=== PATIENT | male | born 1960 | race Caucasian/White ===

== ENCOUNTER 2022-03-05 10:28 | Inpatient (IN) | payer OTHER ==
[~2022-03-05] VITALS: Ht 182.9 cm; Wt 108.5 kg
[2022-03-05 12:02] LABS: Basophils # (auto) 0.2 10 ^3/uL (0-0.2); Basophils % (auto) 1.8 % (0.0-2.0); Eosinophils # (auto) 0.1 10 ^3/uL (0-0.8); Eosinophils % (auto) 0.7 % (0.0-7.0); Hematocrit 42.5 % (41.0-53.0); Hemoglobin 14.3 g/dL (13.5-17.5); Lymphocytes # (auto) 1.3 10 ^3/uL (0.4-5.4); Mean Corpuscular Hemoglobin 27.1 pg (28.0-32.0); Mean Corpuscular Hgb Conc. 33.7 g/dL (32.0-36.0); Mean Corpuscular Volume 80.3 fL (80.0-100.0); Monocytes # (auto) 0.8 10 ^3/uL (0-1.3); Monocytes % (auto) 5.9 % (0.0-12.0); Neutrophils # (auto) 10.4 10 ^3/uL (1.6-8.6); Neutrophils % (auto) 81.6 % (37.0-80.0); Red Blood Cells 5.29 10^6/uL (4.5-5.90); Red Cell Distribution Width 13.3 % (11.8-14.3); White Blood Cell 12.8 10^3/uL (4.4-10.8)
[2022-03-05 12:28] LABS: Albumin 3.2 g/dL (3.4-5.0); Calcium 8.6 mg/dL (8.5-10.1); Potassium 3.9 mmol/L (3.5-5.1)
[2022-03-05 12:33] LABS: BUN/Creatinine Ratio 15.4; Bilirubin, Total 0.5 mg/dL (0.2-1.0); Total Protein 7.6 g/dL (6.4-8.2)
[2022-03-05] MEDS ORDERED: IOHEXOL 350 MG/ML 100ML IJ ONE (14:34)
[2022-03-05] MEDS ORDERED: cefTRIAXone 1GM/50ML D5W 50 ML IV ONE (20:45)
[2022-03-05] MEDS ORDERED: TEMAZEPAM 15 MG CAP PO PRN (23:00)
[2022-03-05] MEDS ORDERED: ACETAMINOPHEN 325 MG TAB PO PRN (23:00)
[2022-03-05] MEDS ORDERED: methylPREDNISolone SOD SUCC 125 MG/2 ML VL IV ONE (23:00)
[2022-03-05] MEDS ORDERED: ALBUTEROL SULF 2.5 MG/0.5ML(0.5%) NEB SOLN NEB PRN (23:00)
[2022-03-05] MEDS ORDERED: MORPHINE SULFATE INJ 2 MG/ml SYRG IV PRN (23:00)
[2022-03-05] MEDS ORDERED: NITROGLYCERIN 0.4 MG SL TAB SL PRN (23:00)
[2022-03-05] MEDS ORDERED: ONDANSETRON HCL 4 MG/2 ML VIAL IV PRN (23:00)
[2022-03-05 23:06] VITALS: BP 151/81
[2022-03-06 01:06] VITALS: BP_SYST 150; BP_DIAS 81; BP_DIAS 85
[2022-03-06 04:42] VITALS: BP 127/74
[2022-03-06 05:40] LABS: Basophils # (auto) 0 10 ^3/uL (0-0.2); Basophils % (auto) 0.1 % (0.0-2.0); Eosinophils # (auto) 0 10 ^3/uL (0-0.8); Eosinophils % (auto) 0.1 % (0.0-7.0); Hematocrit 41.9 % (41.0-53.0); Hemoglobin 14.3 g/dL (13.5-17.5); Lymphocytes # (auto) 0.8 10 ^3/uL (0.4-5.4); Lymphocytes % (auto) 7.6 % (10.0-50.0); Mean Corpuscular Hemoglobin 27.5 pg (28.0-32.0); Mean Corpuscular Hgb Conc. 34.2 g/dL (32.0-36.0); Mean Corpuscular Volume 80.4 fL (80.0-100.0); Monocytes # (auto) 0.2 10 ^3/uL (0-1.3); Monocytes % (auto) 2.2 % (0.0-12.0); Neutrophils # (auto) 9.4 10 ^3/uL (1.6-8.6); Red Blood Cells 5.21 10^6/uL (4.5-5.90); Red Cell Distribution Width 13.2 % (11.8-14.3); White Blood Cell 10.4 10^3/uL (4.4-10.8)
[2022-03-06 06:00] LABS: Calcium 8.9 mg/dL (8.5-10.1); Potassium 4.5 mmol/L (3.5-5.1)
[2022-03-06] MEDS: LEVOTHYROXINE SODIUM 50 MCG TAB PO SCH (06:05)
[2022-03-06] MEDS ORDERED: ATOR20TA50 PO (06:41)
[2022-03-06] MEDS ORDERED: LISI20TA28 PO (06:41)
[2022-03-06] MEDS ORDERED: LEVO50TA7 PO (06:41)
[2022-03-06 09:00] VITALS: BP 146/98
[2022-03-06] MEDS: cefTRIAXone 1GM/50ML D5W 50 ML IV SCH (09:45)
[2022-03-06] MEDS: methylPREDNISolone SOD SUCC 40 MG/ML VL IV SCH ×2 (09:45→21:18)
[2022-03-06] MEDS: PANTOPRAZOLE 40 MG TAB PO SCH (09:45)
[2022-03-06] MEDS: LISINOPRIL 20 MG TAB PO SCH (09:46)
[2022-03-06] MEDS ORDERED: ENOXAPARIN SOD 40 MG/0.4 ML SYRINGE SC SCH (10:00)
[2022-03-06] MEDS: IPRATROPIUM BROM 0.5 MG/2.5ML INH SOL NEB SCH ×2 (11:26→18:50)
[2022-03-06] MEDS: ALBUTEROL SULF 2.5 MG/0.5ML(0.5%) NEB SOLN NEB SCH ×2 (11:26→18:50)
[2022-03-06 12:17] LABS: Urine WBC None Seen /hpf (0 - 3)
[2022-03-06 12:49] LABS: Urine Bacteria NONE SEEN /hpf (None Seen); Urine Blood Negative /uL (Negative); Urine Specific Gravity 1.008 (1.001-1.035)
[2022-03-06 13:02] VITALS: BP 144/81
[2022-03-06] MEDS: guaiFENesin-DM 100/10mg/5ml SYR PO PRN ×2 (14:39→21:18)
[2022-03-06 17:00] VITALS: BP 137/85
[2022-03-06 22:00] VITALS: BP 136/75
[2022-03-06] MEDS ORDERED: ATORVASTATIN 20 MG TAB PO SCH (22:00)
[2022-03-07] MEDS: IPRATROPIUM BROM 0.5 MG/2.5ML INH SOL NEB SCH ×2 (04:37→11:20)
[2022-03-07] MEDS: ALBUTEROL SULF 2.5 MG/0.5ML(0.5%) NEB SOLN NEB SCH ×2 (04:37→11:19)
[2022-03-07 05:00] VITALS: BP 143/83
[2022-03-07] MEDS: LEVOTHYROXINE SODIUM 50 MCG TAB PO SCH (06:01)
[2022-03-07] MEDS: guaiFENesin-DM 100/10mg/5ml SYR PO PRN (06:40)
[2022-03-07 09:00] VITALS: BP 147/84
[2022-03-07] MEDS: LISINOPRIL 20 MG TAB PO SCH (09:29)
[2022-03-07] MEDS: PANTOPRAZOLE 40 MG TAB PO SCH (09:29)
[2022-03-07] MEDS: methylPREDNISolone SOD SUCC 40 MG/ML VL IV SCH (09:29)
[2022-03-07] MEDS: cefTRIAXone 1GM/50ML D5W 50 ML IV SCH (09:29)
[2022-03-07 13:00] VITALS: BP 141/84
== END 2022-03-07 12:09 | disposition home or self-care (01) | DRG 194 ==
LOC: ER 10:28 → TELE 22:52 → TELE-CENTR 23:37
PROVIDERS: ADMIT Nurse Practitioner; ATTEND Internal Medicine
DX: J18.9 Pneumonia, unspecified organism (principal); I24.9 Acute ischemic heart disease, unspecified; I25.10 Atherosclerotic heart disease of native coronary artery without angina pectoris; E66.9 Obesity, unspecified; E78.5 Hyperlipidemia, unspecified; E03.9 Hypothyroidism, unspecified; I10 Essential (primary) hypertension; Z20.822 Contact with and (suspected) exposure to COVID-19; J45.909 Unspecified asthma, uncomplicated; Z68.32 Body mass index [BMI] 32.0-32.9, adult
CPT/HCPCS: 36415; 71045; 71275; 80048; 80053; 81001; 83880; 84443; 84484; 85025; 85379; 87081; 93005; 93306; 94640; 96365; 96375; G0378; J0696

== ENCOUNTER 2025-05-17 08:05 | Inpatient (IN) | payer OTHER ==
[~2025-05-17] VITALS: Ht 185.4 cm; Wt 102.5 kg
[~2025-05-17 08:05] MED LIST: ATOR20TA50 PO; LEVO50TA7 PO; LISI20TA56 PO
--- NOTE | 2025-05-17 08:15 | ECG ---
[facility] Test Date: 2025-05-17 Test Time: 08:12:04 Pat Name: FAIZAN MCKENZIE Department: Room: 0222 Gender: M Production Planner: CHRISTINA : 1960 Requested By: YONATHAN ARVIZU Order Number: [id number] Reading MD: Tommie Domínguez Measurements Intervals [place] Rate: 71 P: 63 IN: 172 QRS: 40 QRSD: 99 T: 76 QT: 429 QTc: 467 Interpretive Statements Sinus rhythm Abnormal R-wave progression, early transition Electronically Signed On 05-18-2025 18:46:49 PDT by Tommie Domínguez Please click the below link to view image of tracing.
--- NOTE | 2025-05-17 08:27 | ED.PDOC ---
History of Present Illness HPI Comments 65-year-old male came to the complaining of epigastric pain this morning. Epigastric pain radiating to the back. He states the is 10 10. Associated nausea unable vomit diarrhea. Patient has never had this kind of pain in the past. He does have a history of hypertension. He does take manjera injection for his prediabetes. Denies any past surgical history. Denies any other symptoms. Chief Complaint: Abdominal Pain Time Seen by MD: 08:16 Primary Care Provider: JHOANA Reviewed Notes: Nurses Notes, Medications, Allergies Allergies: Coded Allergies: NO KNOWN ALLERGIES (Unverified , 07/15/13) Home Meds Reported Medications Atorvastatin Calcium (ATORVASTATIN CALCIUM) 20 Mg Tab, 1 TAB PO DAILYPRN 03/06/22 Lisinopril (Lisinopril) 20 Mg Tab, 1 TAB PO DAILYPRN 03/06/22 Levothyroxine Sodium (Levothyroxine Sodium) 50 Mcg Tab, 1 TAB PO DAILYPRN 03/06/22 Information Source: Patient Mode of Arrival: Ambulatory Severity: Moderate Timing: Hours Past Medical History PAST MEDICAL HISTORY: HTN, Thyroid Surgical History: Denies all surgeries Family History Family History: No family hx of Cancer, No family hx of Heart jimmie Social History Smoker: Non-Smoker Alcohol: Denies ETOH Use Drugs: Denies Drug Use Lives In: Home Constitutional: denies: chills, diaphoresis, fatigue, fever, malaise, sweats, weakness, others EENTM: denies: blurred vision, double vision, ear bleeding, ear discharge, ear drainage, ear pain, ear ringing, eye pain, eye redness, hearing loss, mouth pain, mouth swelling, nasal discharge, nose bleeding, nose congestion, nose pain, photophobia, tearing, throat pain, throat swelling, voice changes, others Respiratory: denies: cough, hemoptysis, orthopnea, SOB at rest, shortness of breath, SOB with excertion, stridor, wheezing, others Cardiovascular: denies: chest pain, dizzy spells, diaphoresis, Dyspnea on exertion, edema, irregular heart beat, left arm pain, lightheadedness, palpitations, PND, syncope, others Gastrointestinal: reports: abdominal pain, diarrhea, nausea; denies: abdomen distended, blood streaked bowels, constipated, dysphagia, difficulty swallowing, hematemesis, melena, poor appetite, poor fluid intake, rectal bleeding, rectal pain, vomiting, others Genitourinary: denies: burning, dysuria, flank pain, frequency, hematuria, incontinence, penile discharge, penile sore, pain, testicle pain, testicle swelling, urgency, others Neurological: denies: dizziness, fainting, headache, left sided numbness, left sided weakness, numbness, paresthesia, pre-existing deficit, right sided numbness, right sided weakness, seizure, speech problems, tingling, tremors, weakness, others Musculoskeletal: denies: back pain, gout, joint pain, joint swelling, muscle pain, muscle stiffness, neck pain, others Integumetry: denies: bruises, change in color, change in hair/nails, dryness, laceration, lesions, lumps, rash, wounds, others Allergic/Immunocompromised: denies: Difficulty Healing, Frequent Infections, Hives, Itching, others Hematologic/Lymphatic: denies: anemia, blood clots, easy bleeding, easy bruising, swollen glands, others Endocrine: denies: excessive hunger, excessive sweating, excessive thirst, excessive urination, flushing, intolerance to cold, intolerance to heat, unexpl ained weight gain, unexplained weight loss, others Psychiatric: denies: anxiety, bipolar disorder, depression, hopeless, panic disorder, schizophrenia, sleepless, suicidal, others Physical Exam General Appearance: Moderate Distress HEENT: Normal ENT Inspection, Pharynx Normal, TMs Normal Neck: Full Range of Motion, Non-Tender, Normal, Normal Inspection Respiratory: Chest Non-Tender, Lungs Clear, No Accessory Muscle Use, No Respiratory Distress, Normal Breath Sounds Cardiovascular: No Edema, No JVD, No Murmur, No Gallop, Normal Peripheral Pulses, Regular Rate/Rhythm Breast Exam: Deferred Gastrointestinal: Soft Genitalia: Deferred Pelvic: Deferred Rectal: Deferred Extremities: No calf tenderness, Normal capillary refill, Normal inspection, Normal range of motion, Non-tender, No pedal edema Musculoskeletal : Apperance: Normal Neurologic: Alert, mill tender washing II-XII nml as Tested, No Motor Deficits, Normal Affect, Normal Mood, No Sensory Deficits Cerebellar Function: Normal Reflexes: Normal Skin: Dry, Normal Color, Warm Peripheral Pulses: 3+ Radial (R), 3+ Radial (L) Lymphatic: No Adenopathy Was a procedure done? Was a procedure done?: No EKG EKG : Pulse Rate (adult): 71 Cardiac Rhythm: NSR Differential Dx Considerations may include: Gastroenteritis Electrolyte imbalance X-Ray, Labs, Meds, VS Vital Signs Date Time Temp Pulse Resp B/P (MAP) Pulse Ox O2 Delivery O2 Flow Rate FiO2 05/17/25 10:44 77 18 146/97 05/17/25 10:09 97.5 77 17 146/97 (113) 92 97.5 05/17/25 09:00 80 16 148/97 05/17/25 08:27 71 05/17/25 08:12 71 05/17/25 08:06 97.7 80 18 151/78 98 97.7 Lab Test 05/17/25 10:38 05/17/25 08:50 Range/Units Troponin I High Sensitivity 5 3 L </=54 ng/L White Blood Count 17.0 H 4.4-10.8 10^3/uL Red Blood Count 6.05 H 4.5-5.90 10^6/uL Hemoglobin 16.5 13.5-17.5 g/dL Hematocrit 49.3 41.0-53.0 % Mean Corpuscular Volume 81.5 80.0-100.0 fL Mean Corpuscular Hemoglobin 27.2 L 28.0-32.0 pg Mean Corpuscular Hemoglobin Concent 33.4 32.0-36.0 g/dL Red Cell Distribution Width 13.1 11.8-14.3 % Platelet Count 380 140-450 10^3/uL Mean Platelet Volume 8.0 6.9-10.8 fL Neutrophils (%) (Auto) 84.4 H 37.0-80.0 % Lymphocytes (%) (Auto) 8.9 L 10.0-50.0 % Monocytes (%) (Auto) 6.0 0.0-12.0 % Eosinophils (%) (Auto) 0.3 0.0-7.0 % Basophils (%) (Auto) 0.4 0.0-2.0 % Neutrophils # (Auto) 14.3 H 1.6-8.6 10 ^3/uL Lymphocytes # (Auto) 1.5 0.4-5.4 10 ^3/uL Monocytes # (Auto) 1.0 0-1.3 10 ^3/uL Eosinophils # (Auto) 0.1 0-0.8 10 ^3/uL Basophils # (Auto) 0.1 0-0.2 10 ^3/uL Nucleated Red Blood Cells 0.0 % Sodium Level 142 136-145 mmol/L Potassium Level 4.7 3.5-5.1 mmol/L Chloride Level 108 H 98-107 mmol/L Carbon Dioxide Level 25 20-31 mmol/L Anion Gap 9 5-15 Blood Urea Nitrogen 17 9-23 mg/dL Creatinine 1.29 0.700-1.30 mg/dL Glomerular Filtration Rate Calc 61 >90 mL/min BUN/Creatinine Ratio 13.2 10.0-20.0 Serum Glucose 169 H 74-106 mg/dL Calcium Level 9.1 8.7-10.4 mg/dL Current Medications Medications (Trade) Dose Ordered Sig/Vicky Route Start Time Stop Time Status Last Admin Sodium Chloride 1,000 ml @ 1,000 mls/hr Q1H ONCE IV 05/17/25 08:30 05/17/25 09:29 DC 05/17/25 09:30 Ondansetron HCl (Zofran) 4 mg ONCE ONCE IV 05/17/25 08:30 05/17/25 08:31 DC 05/17/25 09:30 Morphine Sulfate 4 mg ONCE ONCE IV 05/17/25 08:30 05/17/25 08:31 DC 05/17/25 09:00 Hydromorphone HCl (Dilaudid Injection) 1 mg ONCE ONCE IV 05/17/25 10:15 05/17/25 10:17 DC 05/17/25 10:44 Ceftriaxone Sodium 50 ml @ 100 mls/hr ONCE ONCE IV 05/17/25 11:15 05/17/25 11:44 DC 05/17/25 11:35 Patient alert. Complaining of nausea unable to vomit diarrhea. Vitals stable. Answering questions. Blood pressure slightly elevated possibly from pain. Establish intravenous access Was given fluids, Was given morphine. Was given Zofran. Explained to the patient. Continue monitoring. [address] [address] Ph: [phone] DIAGNOSTIC IMAGING Diagnostic Imaging Report : [id number] Signed PATIENT: FAIZAN MCKENZIE ACCT: [id number] UNIT: [id number] : 1960 LOC: ER ROOM / BED: / AGE / SEX: 65 / M ADM STATUS: REG ER SERVICE 08 ORDERING PHYSICIAN: YONATHAN ARVIZU MD PROCEDURE(s): CXRP - CHEST PORTABLE REASON: sob ORDER NUMBER(s): [id number], ACCESSION NUMBER(s): [id number] CHEST RADIOGRAPH Indication: sob Technique: Single frontal view of the chest was obtained COMPARISON: CXRP on DOS: 03/05/22 FINDINGS: Lines and Tubes: None Lungs: Clear Pleura: No effusion. No pneumothorax. Cardiomediastinal contours: Unremarkable Bones: Unremarkable IMPRESSION: No acute disease. ATED BY: LUIS RUSHING MD DICTATED DATE/TIME: 05/17/25857 SIGNED BY: LUIS RUSHING MD SIGNED DATE/TIME: 05/17/25857 CC: [place] [id number] Ph: [phone] DIAGNOSTIC IMAGING Diagnostic Imaging Report : [id number] Signed PATIENT: FAIZAN MCKENZIE ACCT: [id number] UNIT: [id number] : 1960 LOC: ER ROOM / BED: / AGE / SEX: 65 / M ADM STATUS: REG ER SERVICE 1023 ORDERING PHYSICIAN: YONATHAN ARVIZU MD PROCEDURE(s): ABPL - CT AB PEL WO CON-NO ORAL OR IV REASON: ABD PAIN ORDER NUMBER(s): [id number], ACCESSION NUMBER(s): [id number] CLINICAL INFORMATION: Abdominal pain. TECHNIQUE: Axial CT images of the abdomen and pelvis were obtained without IV contrast. Coronal and sagittal reformatted images were obtained, reviewed, and stored. Evaluation of the parenchymal organs is limited without IV contrast. Evaluation of the bowel and mesentery is limited without oral contrast. All CT scans at this medical facility are performed using dose modulation techniques as appropriate to a performed exam including the following: Automated exposure control was utilized; adjustment of the MA and/or KV according to patient size; and use of iterative reconstruction technique. CTDIvol = 20.17, 0.14 mGy DLP = 1171.95 mGy-cm COMPARISON: None. FINDINGS: Lung bases: Atelectasis in the lung bases. Liver: Grossly unremarkable in its noncontrast enhanced appearance. No abnormal density or focal lesion identified. Biliary: No calcified gallstones or biliary ductal dilatation. Spleen: Unremarkable. Pancreas: Grossly unremarkable in its noncontrast enhanced appearance. Adrenal glands: Unremarkable. No mass. Kidneys: No hydronephrosis. No renal or ureteral calculi. Aorta/Vascular: Moderate atherosclerotic calcification. No abdominal aortic aneurysm. Retroperitoneum: No mass or lymphadenopathy. Bowel/mesentery: No small bowel obstruction. No free air. Small amount of free fluid in the pelvis, may be inflammatory in nature. Appendix is not visualized. Scattered colonic diverticula without adjacent inflammatory changes to suggest diverticulitis. Pelvic organs: Grossly unremarkable. Bladder: Unremarkable. No mass. Abdominal wall: Small fat containing umbilical hernia. Bones: No acute fracture or suspicious intraosseous lesion. IMPRESSION: 1. Scattered colonic diverticula without adjacent inflammatory changes to suggest diverticulitis. 2. Small amount of free fluid in the pelvis, may be inflammatory in nature. 3. Additional nonacute findings as described above. ATED BY: JOSUE PUENTES DO DICTATED DATE/TIME: 05/17/25 1059 SIGNED BY: JOSUE PUENTES DO SIGNED DATE/TIME: 05/17/25 1059 CC: Time of 1ST Reevaluation: 08:25 Reevaluation 1ST: Unchanged Patient Education/Counseling: Diagnosis, Treatment, Prognosis, Need For Follow Up Family Education/Counseling: Diagnosis, Treatment SEPSIS Sepsis Screen Date sepsis recognized/suspect: May 17, 2025 Time Sepsis recognized/suspect: 08 Recent Procedure: No On Antibiotic Therapy: No Respiratory Rate >20: No Heart Rate >90: No Temp<36 C (96.8 F) or >38.3 C: No SBP <90 or MAP <65 mmHG: No New Acute Mental Status Change: No Is the patient on CPAP, BIPAP,: No Physician Orders Chest Portable (05/17/25 08:27) Urinalysis (05/17/25 08:27) Troponin-I Hs (05/17/25 11:27) Ct Ab Pel Wo Con-No Oral Or Iv (05/17/25 10:23) Metronidazole 500mg/100ml (Flagyl 500mg/ (05/17/25 11:15) Vital Signs Date Time Temp Pulse Resp B/P (MAP) Pulse Ox O2 Delivery O2 Flow Rate FiO2 05/17/25 10:44 77 18 146/97 05/17/25 10:09 97.5 77 17 146/97 (113) 92 97.5 05/17/25 09:00 80 16 148/97 05/17/25 08:27 71 05/17/25 08:12 71 05/17/25 08:06 97.7 80 18 151/78 98 97.7 Laboratory Tests Test 05/17/25 08:50 White Blood Count 17.0 10^3/uL (4.4-10.8) H Medications Medications Dose Ordered Sig/Vicky Route Start Time Stop Time Status Last Admin Dose Admin Ceftriaxone Sodium 50 ml @ 100 mls/hr ONCE ONCE IV 05/17/25 11:15 05/17/25 11:44 DC 05/17/25 11:35 Hydromorphone HCl 1 mg ONCE ONCE IV 05/17/25 10:15 05/17/25 10:17 DC 05/17/25 10:44 Morphine Sulfate 4 mg ONCE ONCE IV 05/17/25 08:30 05/17/25 08:31 DC 05/17/25 09:00 Ondansetron HCl 4 mg ONCE ONCE IV 05/17/25 08:30 05/17/25 08:31 DC 05/17/25 09:30 Sodium Chloride 1,000 ml @ 1,000 mls/hr Q1H ONCE IV 05/17/25 08:30 05/17/25 09:29 DC 05/17/25 09:30 Departure 1 Departure Time of Disposition: 08:26 Impression: Primary Impression: Gastroenteritis Additional Impression: HTN (hypertension) Qualified Codes: I10 - Essential (primary) hypertension Disposition: ADMITTED INPATIENT Admit to: Med Surg Condition: Guarded Critical Care Note Critical Care Time?: No Stability Stability form required: No Heart Score Heart Score: Heart Score Response (Comments) Value History Slightly Suspicious 0 EKG Normal 0 Age >65 2 Risk Factors >3 or Hx ASHD 2 Troponin Normal limit 0 Total 4 I personally scribed for YONATHAN ARVIZU MD ([email or web address]) on 05/17/25 at 11:48. Electronically submitted by Chaya Das ([email or web address]). I personally scribed for YONATHAN ARVIZU MD ([email or web address]) on 05/17/25 at 11:50. Electronically submitted by Chaya Das [email or web address]). YONATHAN ARVIZU MD May 17, 2025 08:27
[2025-05-17] MEDS: MORPHINE SULFATE 4 MG/ML SYR/VIAL IV ONE (09:00)
--- NOTE | 2025-05-17 09:00 | DVH ---
CHEST RADIOGRAPH Indication: sob Technique: Single frontal view of the chest was obtained COMPARISON: CXRP on DOS: 03/05/22 FINDINGS: Lines and Tubes: None Lungs: Clear Pleura: No effusion. No pneumothorax. Cardiomediastinal contours: Unremarkable Bones: Unremarkable IMPRESSION: No acute disease.
[2025-05-17 09:06] LABS: Mean Corpuscular Hemoglobin 27.2 pg (28.0-32.0)
[2025-05-17 09:10] LABS: Hematocrit 49.3 % (41.0-53.0); Hemoglobin 16.5 g/dL (13.5-17.5); Mean Corpuscular Volume 81.5 fL (80.0-100.0); Nucleated Red Blood Cells % 0.0 %
[2025-05-17 09:15] LABS: Potassium 4.7 mmol/L (3.5-5.1); Sodium 142 mmol/L (136-145)
[2025-05-17 09:16] LABS: Anion Gap 9 (5-15); Calcium 9.1 mg/dL (8.7-10.4); Carbon Dioxide 25 mmol/L (20-31)
[2025-05-17 09:18] LABS: Chloride 108 mmol/L (98-107)
[2025-05-17 09:21] LABS: BUN/Creatinine Ratio 13.2 (10.0-20.0); Blood Urea Nitrogen 17 mg/dL (9-23)
[2025-05-17 09:24] LABS: Glucose 169 mg/dL (74-106)
[2025-05-17] MEDS: SODIUM CHLORIDE 0.9% 1,000 ML IV ONE (09:30)
[2025-05-17] MEDS: ONDANSETRON HCL 4 MG/2 ML VIAL IV ONE (09:30)
[2025-05-17] MEDS: HYDROmorphone HCL 2 MG/ML VL/or syr IV ONE ×2 (10:44→13:07)
--- NOTE | 2025-05-17 11:01 | DVH ---
CLINICAL INFORMATION: Abdominal pain. TECHNIQUE: Axial CT images of the abdomen and pelvis were obtained without IV contrast. Coronal and s agittal reformatted images were obtained, reviewed, and stored. Evaluation of the parenchymal organs is limited without IV contrast. Evaluation of the bowel and mesentery is limited without oral contras t. All CT scans at this medical facility are performed using dose modulation techniques as appropriat e to a performed exam including the following: Automated exposure control was utilized; adjustment of the MA and/or KV according to patient size; and use of iterative reconstruction technique. CTDIvol = 20.17, 0.14 mGy DLP = 1171.95 mGy-cm COMPARISON: None. FINDINGS: Lung bases: Atelectasis in the lung bases. Liver: Grossly unremarkable in its noncontrast enhanced appearance. No abnormal density or focal lesi on identified. Biliary: No calcified gallstones or biliary ductal dilatation. Spleen: Unremarkable. Pancreas: Grossly unremarkable in its noncontrast enhanced appearance. Adrenal glands: Unremarkable. No mass. Kidneys: No hydronephrosis. No renal or ureteral calculi. Aorta/Vascular: Moderate atherosclerotic calcification. No abdominal aortic aneurysm. Retroperitoneum: No mass or lymphadenopathy. Bowel/mesentery: No small bowel obstruction. No free air. Small amount of free fluid in the pelvis, m ay be inflammatory in nature. Appendix is not visualized. Scattered colonic diverticula without adjac ent inflammatory changes to suggest diverticulitis. Pelvic organs: Grossly unremarkable. Bladder: Unremarkable. No mass. Abdominal wall: Small fat containing umbilical hernia. Bones: No acute fracture or suspicious intraosseous lesion. IMPRESSION: 1. Scattered colonic diverticula without adjacent inflammatory changes to suggest diverticulitis. 2. Small amount of free fluid in the pelvis, may be inflammatory in nature. 3. Additional nonacute findings as described above.
[2025-05-17] MEDS: cefTRIAXone 1GM/50ML D5W 50 ML IV ONE (11:35)
[2025-05-17 12:42] VITALS: PULSE 77; RESP 17; O2SAT 99
[2025-05-17] MEDS: PANTOPRAZOLE 40 MG/10 ML VIAL INJ IV ONE (13:06)
[2025-05-17] MEDS: diphenhdrAMINE HCL 50 MG/1 ML VL IV ONE (13:10)
[2025-05-17] MEDS ORDERED: MORPHINE SULFATE INJ 2 MG/ml SYRG IV PRN (13:15)
[2025-05-17] MEDS ORDERED: MORPHINE SULFATE 4 MG/ML SYR/VIAL IV PRN (13:15)
[2025-05-17] MEDS ORDERED: DEXTROSE (50%) 50ML SYRG IV PRN (13:15)
[2025-05-17] MEDS ORDERED: NITROGLYCERIN 0.4 MG SL TAB SL PRN (13:15)
--- NOTE | 2025-05-17 13:19 | DVHHP2 ---
History of Present Illness Reason for Visit: Abdominal/epigastric pain History of Present Illness 65-year-old male came to the complaining of epigastric pain this morning. Epigastric pain radiating to the back. He states the is 10 10. Associated nausea unable vomit diarrhea. Patient has never had this kind of pain in the past. He does have a history of hypertension. He does take manjera injection for his prediabetes. Denies any past surgical history. Denies any other symptoms. In the ER patient noted to be in significant pain for which he received IV narcotics without significant relief. Patient's CT of the abdomen did not show acute significant pathology. However based on his presentation with the intractable pain it is decided to admit the patient to the hospital to have GI evaluation and further management. [place] some of his symptoms could be related to Mounjaro GLP one injection he has been taking. Past Medical History Hypertension, thyroid problems, diabetes Past Surgical History: None Family History: Hypertension Smoke: No ALCOHOL: occassional Lives: with Family Review of Systems Review of Systems No recent travel. No diarrhea. No hematemesis or hematochezia. No weight loss. Other review of systems reviewed normal. Allergies: Coded Allergies: NO KNOWN ALLERGIES (Unverified , 07/15/13) Exam Vital Signs Vital Signs Date Time Temp Pulse Resp B/P (MAP) Pulse Ox O2 Delivery O2 Flow Rate FiO2 05/17/25 13:07 83 19 134/82 05/17/25 12:59 97.5 97 97.5 05/17/25 12:42 Nasal Cannula* 2 28 Exam Elderly gentleman in mild distress. Alert awake oriented x3. HEENT neck supple no JVD pupils equal round react to light. Heart regular rate and rhythm S1 and S2 without murmurs. Lungs fair air movement. Chest equal expansion without rales or wheezes. Abdomen epigastric pain to palpation but no rebound or guarding. Unable to palpate any organomegaly. Positive active bowel sounds. Extremities no edema. Positive distal pedal pulses. Labs/Xrays Labs Test 05/17/25 12:01 05/17/25 08:50 Range/Units Troponin I High Sensitivity 6 </=54 ng/L White Blood Count 17.0 H 4.4-10.8 10^3/uL Red Blood Count 6.05 H 4.5-5.90 10^6/uL Hemoglobin 16.5 13.5-17.5 g/dL Hematocrit 49.3 41.0-53.0 % Mean Corpuscular Volume 81.5 80.0-100.0 fL Mean Corpuscular Hemoglobin 27.2 L 28.0-32.0 pg Mean Corpuscular Hemoglobin Concent 33.4 32.0-36.0 g/dL Red Cell Distribution Width 13.1 11.8-14.3 % Platelet Count 380 140-450 10^3/uL Mean Platelet Volume 8.0 6.9-10.8 fL Neutrophils (%) (Auto) 84.4 H 37.0-80.0 % Lymphocytes (%) (Auto) 8.9 L 10.0-50.0 % Monocytes (%) (Auto) 6.0 0.0-12.0 % Eosinophils (%) (Auto) 0.3 0.0-7.0 % Basophils (%) (Auto) 0.4 0.0-2.0 % Neutrophils # (Auto) 14.3 H 1.6-8.6 10 ^3/uL Lymphocytes # (Auto) 1.5 0.4-5.4 10 ^3/uL Monocytes # (Auto) 1.0 0-1.3 10 ^3/uL Eosinophils # (Auto) 0.1 0-0.8 10 ^3/uL Basophils # (Auto) 0.1 0-0.2 10 ^3/uL Nucleated Red Blood Cells 0.0 % Sodium Level 142 136-145 mmol/L Potassium Level 4.7 3.5-5.1 mmol/L Chloride Level 108 H 98-107 mmol/L Carbon Dioxide Level 25 20-31 mmol/L Anion Gap 9 5-15 Blood Urea Nitrogen 17 9-23 mg/dL Creatinine 1.29 0.700-1.30 mg/dL Glomerular Filtration Rate Calc 61 >90 mL/min BUN/Creatinine Ratio 13.2 10.0-20.0 Serum Glucose 169 H 74-106 mg/dL Calcium Level 9.1 8.7-10.4 mg/dL SEPSIS Sepsis Screen Date sepsis recognized/suspect: May 17, 2025 Time Sepsis recognized/suspect: 805 Recent Procedure: No On Antibiotic Therapy: No Respiratory Rate >20: No Heart Rate >90: No Temp<36 C (96.8 F) or >38.3 C: No SBP <90 or MAP <65 mmHG: No New Acute Mental Status Change: No Is the patient on CPAP, BIPAP,: No Physician Orders Chest Portable (05/17/25 08:27) Urinalysis (05/17/25 08:27) Ct Ab Pel Wo Con-No Oral Or Iv (05/17/25 10:23) Hepatic Panel (05/17/25 12:55) Lipid Panel (05/17/25 12:55) Lipase (05/17/25 12:55) Lipase (05/17/25 13:05) Complete Blood Count (05/17/25 13:05) Admit (05/17/25 13:15) Clear Liq Diet (05/17/25 Lunch) Nitroglycerin Sublingual (Ntrostat Subli (05/17/25 13:15) Morphine Sulfate Injection (05/17/25 13:15) Stat Ekg For Chest Pain (05/17/25 13:15) Notify Md Of Changes From Base (05/17/25 13:15) Emergency Dysrhythmia Protocol (05/17/25 13:15) Rhythm Strips Once Every Shift (05/17/25 13:15) NS (05/17/25 13:15) Ondansetron Hcl (Zofran) (05/17/25 13:15) Morphine Sulfate Injection (05/17/25 13:15) Morphine Sulfate Injection (05/17/25 13:15) Hydrocodone-Acet 5/325mg Tab ([place] 5/32 (05/17/25 13:15) Pantoprazole (Protonix) (05/17/25 22:00) Urinalysis (05/17/25 13:15) Drug Screen (05/17/25 13:15) Comprehensive Metabolic Panel (05/18/25 04:00) Complete Blood Count (05/18/25 04:00) Lipase (05/18/25 04:00) Glucose Blood (Accu-Chek Comfort Curve T (05/17/25 17:00) Bedtime Insulin Scale (05/17/25 22:00) Moderate Insulin Ss (05/17/25 17:00) Dextrose 50% Syringe (05/17/25 13:15) Vital Signs Date Time Temp Pulse Resp B/P (MAP) Pulse Ox O2 Delivery O2 Flow Rate FiO2 05/17/25 13:07 83 19 134/82 05/17/25 12:59 97.5 71 19 144/82 (102) 97 97.5 05/17/25 12:42 77 17 99 Nasal Cannula* 2 28 05/17/25 10:44 77 18 146/97 05/17/25 10:09 97.5 77 17 146/97 (113) 92 97.5 05/17/25 09:00 80 16 148/97 05/17/25 08:27 71 05/17/25 08:12 71 05/17/25 08:06 97.7 80 18 151/78 98 97.7 Laboratory Tests Test 05/17/25 08:50 White Blood Count 17.0 10^3/uL (4.4-10.8) H Medications Medications Dose Ordered Sig/Vicky Route Start Time Stop Time Status Last Admin Dose Admin Ceftriaxone Sodium 50 ml @ 100 mls/hr ONCE ONCE IV 05/17/25 11:15 05/17/25 11:44 DC 05/17/25 11:35 100 MLS/HR Diphenhydramine HCl 50 mg ONCE ONCE IV 05/17/25 12:45 05/17/25 12:46 DC 05/17/25 13:10 50 MG Hydromorphone HCl 1 mg ONCE ONCE IV 05/17/25 10:15 05/17/25 10:17 DC 05/17/25 10:44 1 MG Hydromorphone HCl 1 mg ONCE ONCE IV 05/17/25 12:45 05/17/25 12:46 DC 05/17/25 13:07 1 MG Metronidazole 100 ml @ 100 mls/hr ONCE ONCE IV 05/17/25 11:15 05/17/25 12:14 DC 05/17/25 12:27 100 MLS/HR Morphine Sulfate 4 mg ONCE ONCE IV 05/17/25 08:30 05/17/25 08:31 DC 05/17/25 09:00 4 MG Ondansetron HCl 4 mg ONCE ONCE IV 05/17/25 08:30 05/17/25 08:31 DC 05/17/25 09:30 4 MG Pantoprazole Sodium 40 mg ONCE ONCE IV 05/17/25 12:45 05/17/25 12:46 DC 05/17/25 13:06 40 MG Sodium Chloride 1,000 ml @ 1,000 mls/hr Q1H ONCE IV 05/17/25 08:30 05/17/25 09:29 DC 05/17/25 09:30 1,000 MLS/HR Assessment/Plan Assessment/Plan Epigastric pain possible related to Mounjaro injections versus other causes Hypertension History of diabetes Given his pain is not adequately controlled with the pain medications in the ER we will admit him to medical floor. I will have GI consultation. Clear liquid diet. Follow up labs and lipase levels. Check A1c levels. Control his blood pressure. Resume other home medications. Supportive care and treatment with fluids and pain medications. Otherwise further clinical management per clinical course. Plan discussed with: Other My Orders Orders - ANDRIY FERNANDEZ MD Procedure Category Date Status Time Hepatic Panel LAB 05/17/25 Logged 12:55 Lipid Panel LAB 05/17/25 Logged 12:55 Lipase LAB 05/17/25 Logged 12:55 Complete Blood Count LAB 05/17/25 Logged 13:05 Admit ADMIT 05/17/25 Transmitted 13:15 Clear Liq Diet DIET 05/17/25 Transmitted Lunch Nitroglycerin PHA 05/17/25 Transmitted Sublingual (Ntrostat 13:15 Morphine Sulfate PHA 05/17/25 Transmitted Injection 13:15 Stat Ekg For Chest [facility] 05/17/25 Transmitted Pain 13:15 Notify Md Of Changes [facility] 05/17/25 Transmitted From Base 13:15 Emergency Dysrhythmia [facility] 05/17/25 Transmitted Protocol 13:15 Rhythm Strips Once [facility] 05/17/25 Transmitted Every Shift 13:15 NS PHA 05/17/25 Transmitted 13:15 Ondansetron Hcl PHA 05/17/25 Transmitted (Zofran) 13:15 Morphine Sulfate PHA 05/17/25 Transmitted Injection 13:15 Morphine Sulfate PHA 05/17/25 Transmitted Injection 13:15 Hydrocodone-Acet PHA 05/17/25 Transmitted 5/325mg Tab ([place] 13:15 Pantoprazole PHA 05/17/25 Transmitted (Protonix) 22:00 Urinalysis LAB 05/17/25 Transmitted 13:15 Drug Screen LAB 05/17/25 Transmitted 13:15 Comprehensive LAB 05/18/25 Verified Metabolic Panel 04:00 Complete Blood Count LAB 05/18/25 Verified 04:00 Lipase LAB 05/18/25 Verified 04:00 Glucose Blood PHA 05/17/25 Transmitted (Accu-Chek Comfort 17:00 Bedtime Insulin Scale PHA 05/17/25 Transmitted 22:00 Moderate Insulin Ss PHA 05/17/25 Transmitted 17:00 Dextrose 50% Syringe PHA 05/17/25 Transmitted 13:15 ANDRIY FERNANDEZ MD May 17, 2025 13:19
[2025-05-17] MEDS: SODIUM CHLORIDE 0.9% 1,000 ML IV SCH (13:41)
[2025-05-17 13:47] LABS: Hematocrit 46.6 % (41.0-53.0); Hemoglobin 15.3 g/dL (13.5-17.5); Mean Corpuscular Hemoglobin 26.9 pg (28.0-32.0); Mean Corpuscular Volume 82.2 fL (80.0-100.0)
[2025-05-17 14:03] LABS: Alanine Aminotransferase 30.0 U/L (7-40); Albumin 4.2 g/dL (3.2-4.8); Alkaline Phosphatase 75.0 U/L (46-116); Bilirubin, Direct 0.1 mg/dL (<0.3); Bilirubin, Total 0.4 mg/dL (0.2-1.0); Cholesterol 124.0 mg/dL (< 200); Total Protein 6.2 g/dL (5.7-8.2); Triglycerides 57.0 mg/dL (< 150)
[2025-05-17 14:06] LABS: HDL Cholesterol 38.0 mg/dL (40-59)
[2025-05-17 14:20] LABS: Lipase 30.0 U/L (12-53)
[2025-05-17 14:30] LABS: Total Cells Counted 100.0 (100)
[2025-05-17] MEDS ORDERED: cefTRIAXone 1GM/50ML D5W 50 ML IV ONE (15:00)
[2025-05-17 16:42] VITALS: BP 137/85; PULSE 75; RESP 16; TEMP 97.9; O2SAT 97
[2025-05-17 17:00] VITALS: BP 137/85; PULSE 75; RESP 16; TEMP 97.9; O2SAT 97
[2025-05-17] MEDS: InsuLIN REG 1unit/0.01ml Soln (100units/ml) SC SCH ×2 (17:00→22:00)
[2025-05-17] MEDS: MORPHINE SULFATE INJ 2 MG/ml SYRG IV PRN (17:16)
[2025-05-17] MEDS: ACCU-CHEK COMFORT CURVE STRIP VI SCH (17:22)
[2025-05-17] MEDS: HYDROcodone-ACET 5/325MG TAB PO PRN (18:55)
[2025-05-17 19:40] LABS: Urine Protein, UAD 1+ (Negative)
[2025-05-17 19:55] LABS: Amphetamine Screen, Urine Neg (NEGATIVE); Barbiturate Scree,Urine Neg (NEGATIVE); Benzodiazephine Screen, Urine Neg (NEGATIVE); Cannabinoid Screen, Urine Neg (NEGATIVE); Cocaine Screen, Urine Neg (NEGATIVE); Opiate Scree,Urine Pos (NEGATIVE); Phencyclidine Screen, Urine Neg (NEGATIVE)
[2025-05-17 20:00] VITALS: PULSE 81; RESP 18; O2SAT 95
[2025-05-17 21:00] VITALS: BP 144/87; PULSE 81; RESP 18; TEMP 97.6; O2SAT 94
[2025-05-17] MEDS: PANTOPRAZOLE 40 MG/10 ML VIAL INJ IV SCH (21:46)
[2025-05-17] MEDS: ATORVASTATIN 20 MG TAB PO SCH (21:46)
[2025-05-18] VITALS (8 sets, daily range): BP systolic 123–158; BP diastolic 71–98; PULSE 74–86; RESP 17–22; TEMP 97.6–98.1; O2SAT 93–97
[2025-05-18] MEDS: LEVOTHYROXINE SODIUM 25 MCG TAB PO SCH (06:17)
[2025-05-18 06:47] LABS: Hematocrit 38.2 % (41.0-53.0); Hemoglobin 12.9 g/dL (13.5-17.5); Mean Corpuscular Hemoglobin 27.7 pg (28.0-32.0); Mean Corpuscular Volume 82.3 fL (80.0-100.0); Nucleated Red Blood Cells % 0.0 %
[2025-05-18 06:56] LABS: Alanine Aminotransferase 19 U/L (7-40); Albumin 3.6 g/dL (3.2-4.8); Alkaline Phosphatase 64 U/L (46-116); Anion Gap 8 (5-15); BUN/Creatinine Ratio 15.2 (10.0-20.0); Blood Urea Nitrogen 12 mg/dL (9-23); Carbon Dioxide 24 mmol/L (20-31); Glucose 104 mg/dL (74-106); Lipase 27 U/L (12-53); Potassium 3.9 mmol/L (3.5-5.1); Sodium 140 mmol/L (136-145); Total Protein 5.9 g/dL (5.7-8.2)
[2025-05-18 06:57] LABS: Bilirubin, Total 0.4 mg/dL (0.2-1.0)
[2025-05-18 07:08] LABS: Calcium 7.8 mg/dL (8.7-10.4); Chloride 108 mmol/L (98-107)
[2025-05-18] MEDS: cefTRIAXone 1GM/50ML D5W 50 ML IV SCH (09:19)
--- NOTE | 2025-05-18 13:31 | DVHINCON2 ---
GI Consult Consult Note GI consult note Date of Consultation: 05/18/2025 Chief Complaint: Epigastric pain Referring Physician: Dr. Lugo H&P: 65-year-old male admitted with complains of epigastric pain, which started two days ago, radiating to back. Patient says pain is very severe. Had nausea vomiting yesterday, none now. Was throwing up dark brown liquid. No melena or red blood in stool. Last BM yesterday. Patient admits to symptoms of GERD. Past medical history of diverticulitis for which he was hospitalized eight years ago. Status post colonoscopy eight years ago no polyps. No EGD in past. Patient has been treated with Mounjaro for DM for five months and has lost about 30 lb, no recent changes in dosage of Mounjaro. Last dose of Mounjaro on Friday Past Medical History: HTN, DM, thyroid problems Past Surgical History: None Social History: NO smoking, drinking ETOH and use of illegal drugs. Family History: Noncontributory Review of Systems: Constitutional: no fever, chill, weight loss HEENT: no eye pain, no hearing loss, no oral lesion, no scleral icterus Heart: no chest pain, no chest pressure Lung: no cough, no dyspnea with exertion Abdomen: see HPI Physical exam: General: NAD, AAOX3 Chest: lung graff clear to auscultation Heart: RRR, no murmur Abdomen: Mild epigastric tenderness to palpation, +BS Labs: Labs Test 05/18/25 11:20 05/18/25 05:13 05/17/25 18:58 05/17/25 13:22 Range/Units POC Glucose 103 70-106 mg/dl White Blood Count 12.3 #H 4.4-10.8 10^3/uL Red Blood Count 4.64 4.5-5.90 10^6/uL Hemoglobin 12.9 #L 13.5-17.5 g/dL Hematocrit 38.2 #L 41.0-53.0 % Mean Corpuscular Volume 82.3 80.0-100.0 fL Mean Corpuscular Hemoglobin 27.7 L 28.0-32.0 pg Mean Corpuscular Hemoglobin Concent 33.7 32.0-36.0 g/dL Red Cell Distribution Width 13.1 11.8-14.3 % Platelet Count 257 140-450 10^3/uL Mean Platelet Volume 8.1 6.9-10.8 fL Neutrophils (%) (Auto) 75.8 37.0-80.0 % Lymphocytes (%) (Auto) 14.9 10.0-50.0 % Monocytes (%) (Auto) 5.4 0.0-12.0 % Eosinophils (%) (Auto) 3.7 0.0-7.0 % Basophils (%) (Auto) 0.2 0.0-2.0 % Neutrophils # (Auto) 9.3 H 1.6-8.6 10 ^3/uL Lymphocytes # (Auto) 1.8 0.4-5.4 10 ^3/uL Monocytes # (Auto) 0.7 0-1.3 10 ^3/uL Eosinophils # (Auto) 0.4 0-0.8 10 ^3/uL Basophils # (Auto) 0 0-0.2 10 ^3/uL Nucleated Red Blood Cells 0.0 % Sodium Level 140 136-145 mmol/L Potassium Level 3.9 3.5-5.1 mmol/L Chloride Level 108 H 98-107 mmol/L Carbon Dioxide Level 24 20-31 mmol/L Anion Gap 8 5-15 Blood Urea Nitrogen 12 9-23 mg/dL Creatinine 0.79 0.700-1.30 mg/dL Glomerular Filtration Rate Calc 98 >90 mL/min BUN/Creatinine Ratio 15.2 10.0-20.0 Serum Glucose 104 74-106 mg/dL Calcium Level 7.8 L 8.7-10.4 mg/dL Total Bilirubin 0.4 0.2-1.0 mg/dL Aspartate Amino Transferase (AST) 17 13-40 U/L Alanine Aminotransferase (ALT) 19 7-40 U/L Alkaline Phosphatase 64 46-116 U/L Total Protein 5.9 5.7-8.2 g/dL Albumin 3.6 3.2-4.8 g/dL Lipase 27 12-53 U/L Urine Color Yellow Yellow Urine Clarity Turbid H Clear Urine pH 5.0 5.0-9.0 Urine Specific [place] 1.028 1.001-1.035 Urine Protein 1+ H Negative Urine Ketones Negative Negative Urine Blood Negative Negative /uL Urine Nitrite Negative Negative Urine Bilirubin Negative Negative Urine Urobilinogen Normal Negative mg/dL Urine Leukocyte Esterase Negative Negative /uL Urine RBC 6 0 - 3 /hpf Urine Microscopic WBC 1 0-3 /HPF Urine Squamous Epithelial Cells None seen <5 /hpf Urine Bacteria None seen None Seen /hpf Urine Hyaline Casts Mod 0 - 2 /lpf Urine Mucus Few None Seen Urine Glucose Normal Normal mg/dL Urine Opiates Screen Pos NEGATIVE Urine Fentanyl Screen Neg NEGATIVE Urine Barbiturates Screen Neg NEGATIVE Urine Phencyclidine Screen Neg NEGATIVE Urine Amphetamines Screen Neg NEGATIVE Urine Benzodiazepines Screen Neg NEGATIVE Urine Cocaine Screen Neg NEGATIVE Urine Cannabinoids Screen Neg NEGATIVE Differential Total Cells Counted 100.0 100 Neutrophils % (Manual) 94 H 37.0-80.0 Band Neutrophils % (Manual) 0 Lymphocytes % (Manual) 4 L 10.0-50.0 Monocytes % (Manual) 2 0-12 Eosinophils % (Manual) 0 0-7 Basophils % (Manual) 0 0.0-2.0 Metamyelocytes % (manual) 0 Myelocytes % (Manual) 0 Promyelocytes % (Manual) 0 Blast Cells % (Manual) 0 Reactive Lymphocytes 0 Platelet Estimate Adequate Direct Bilirubin 0.1 <0.3 mg/dL Triglycerides Level 57 < 150 mg/dL Cholesterol Level 124 < 200 mg/dL LDL Cholesterol 76 < 100 mg/dL HDL Cholesterol 38 L 40-59 mg/dL Test 05/17/25 12:01 Range/Units Troponin I High Sensitivity 6 </=54 ng/L Imaging: CT abdomen pelvis IMPRESSION: 1. Scattered colonic diverticula without adjacent inflammatory changes to suggest diverticulitis. 2. Small amount of free fluid in the pelvis, may be inflammatory in nature. 3. Additional nonacute findings as described above. Assessment: Abdominal pain History of diverticulitis History of GERD DM using Mounjaro Plan: Discussed with Dr. Roman Possible endoscopy was discussed but unable to complete due to recent use of Mounjaro Supportive treatment recommended with Protonix, Zofran, Carafate Possible outpatient EGD recommended as patient's symptoms improve Discussed plan with patient, RN, and hospitalist Dr. Lugo Thank you for this consult Date of Service: May 18, 2025 Billing Provider: JOSELYN BARKSDALE Common Visit Codes: CONSULT ONLY Consultation Codes: [id number] CONSULT <60MIN JOSELYN BARKSDALE May 18, 2025 13:31
[2025-05-18 14:30] LABS: INR 1.08 (0.9-1.15); Prothrombin Time 11.4 sec (9.3-11.8)
[2025-05-18] MEDS: ONDANSETRON HCL 4 MG/2 ML VIAL IV PRN (14:53)
--- NOTE | 2025-05-18 15:38 | DVHPN2 ---
Progress Note - Dictate Date Seen: May 18, 2025 Medical Necessity Reason Pt with a Central, PICC or Fol: No Subjective Clinically feeling better. Epigastric pain has improved. White cell count has normalized. Evaluated by ore feeder and recommended proton pump inhibitor and hold Mounjaro for now. Recommending EGD however given he is taking Mounjaro injection for his weight loss anesthesia recommending to do the feeling from the EGD once he is off of it for two weeks. vital signs Vital Sign Date Time Temp Pulse Resp B/P (MAP) Pulse Ox O2 Delivery O2 Flow Rate FiO2 05/18/25 14:54 79 18 139/84 05/18/25 13:30 98.1 94 98.1 05/18/25 08:00 Room Air* 0 21 Total Intake and Output 05/17/25 05/17/25 05/18/25 15:00 23:00 07:00 Intake Total 200 ml 750 ml Balance 200 ml 750 ml medications Current Medications Medications Dose Ordered Sig/Vicky Route Start Time Stop Time Status Last Admin Dose Admin Nitroglycerin 0.4 mg Q5MINP PRN SL 05/17/25 13:15 Morphine Sulfate 2 mg Q30M PRN IV 05/17/25 13:15 Sodium Chloride 1,000 ml @ 125 mls/hr Q8H IV 05/17/25 13:15 05/18/25 09:31 125 MLS/HR Ondansetron HCl 4 mg Q4HPRN PRN IV 05/17/25 13:15 05/18/25 14:53 4 MG Morphine Sulfate 3 mg Q3HPRN PRN IV 05/17/25 13:15 Morphine Sulfate 2 mg Q4HPRN PRN IV 05/17/25 13:15 05/18/25 14:54 2 MG Acetaminophen/ Hydrocodone Bitart 1 tab Q4HPRN PRN PO 05/17/25 13:15 05/18/25 09:19 1 TAB Pantoprazole Sodium 40 mg BID IV 05/17/25 22:00 05/18/25 09:19 40 MG Diagnostic Test (Pha) 1 strip ACHS 05/17/25 17:00 05/18/25 11:21 1 STRIP Insulin Human Regular HS SC 05/17/25 22:00 Insulin Human Regular AC SC 05/17/25 17:00 Dextrose 50 ml UD PRN IV 05/17/25 13:15 Atorvastatin Calcium 20 mg HS PO 05/17/25 22:00 05/17/25 21:46 20 MG Levothyroxine Sodium 25 mcg QAM@0600 PO 05/18/25 06:00 05/18/25 06:17 25 MCG Ceftriaxone Sodium 50 ml @ 100 mls/hr DAILY@09 IV 05/18/25 09:00 05/18/25 09:19 100 MLS/HR objective Alert awake oriented x3. HEENT neck supple no JVD. Heart regular rate and rhythm S1-S2. Lungs fair air movement without rales wheezes. Abdomen soft nontender positive bowel sounds. Extremities no edema positive pulses. laboratory and microbiology Laboratory Tests 05/18/25 05:13 Test 05/18/25 05:13 Range/Units Serum Glucose 104 74-106 mg/dL Assessment/Plan I will advance his diet overnight. Continue proton pump inhibitor and add Carafate. If he remains stable discharge home tomorrow. Patient we will have elective EGD in the next 2-4 weeks. Discussed with the patient regarding care plan. Problems(with codes): (1) Gastroenteritis (2) HTN (hypertension) Plan discussed with: Patient ANDRIY FERNANDEZ MD May 18, 2025 15:38
[2025-05-18] MEDS ORDERED: HYOSCYAMINE SULF 0.125 MG ODT TAB PO PRN (15:45)
[2025-05-18] MEDS ORDERED: hydrALAZINE HCL 20 MG/ML VL IV PRN (21:15)
[2025-05-18] MEDS: CARVEDILOL 12.5 MG TAB PO SCH (21:45)
[2025-05-18] MEDS: LOSARTAN POTASSIUM 50 MG TAB PO SCH (21:45)
[2025-05-18] MEDS: SUCRALFATE 1 GM/10 ML ORAL SUSP PO SCH (21:46)
[2025-05-19 01:00] VITALS: BP 146/86; PULSE 71; RESP 22; TEMP 98.4; O2SAT 91
[2025-05-19 05:00] VITALS: BP 126/78; PULSE 72; RESP 22; TEMP 98.3; O2SAT 93
[2025-05-19 08:00] VITALS: PULSE 82; RESP 18; O2SAT 97
[2025-05-19 08:46] VITALS: BP 138/87; PULSE 71; RESP 18; TEMP 98; O2SAT 95
[2025-05-19 12:56] VITALS: BP 135/81; PULSE 68; RESP 18; TEMP 98.2; O2SAT 95
[2025-05-19] MEDS ORDERED: HYDR25TA5 PO (13:15)
[2025-05-19] MEDS ORDERED: PANT40TA57 PO (13:15)
[2025-05-19] MEDS ORDERED: LISI20TA56 PO (13:15)
--- NOTE | 2025-05-19 13:19 | DVHDS2 ---
Discharge Summary Date of Admission May 17, 2025 at 13:15 Date of Discharge: May 19, 2025 Labs/Diagnostic Data: Laboratory Results Test 05/19/25 11:54 05/18/25 13:56 05/18/25 05:13 05/17/25 18:58 POC Glucose 116 mg/dl (70-106) Prothrombin Time 11.4 sec (9.3-11.8) Prothrombin Time INR 1.08 (0.9-1.15) White Blood Count 12.3 10^3/uL (4.4-10.8) Red Blood Count 4.64 10^6/uL (4.5-5.90) Hemoglobin 12.9 g/dL (13.5-17.5) Hematocrit 38.2 % (41.0-53.0) Mean Corpuscular Volume 82.3 fL (80.0-100.0) Mean Corpuscular Hemoglobin 27.7 pg (28.0-32.0) Mean Corpuscular Hemoglobin Concent 33.7 g/dL (32.0-36.0) Red Cell Distribution Width 13.1 % (11.8-14.3) Platelet Count 257 10^3/uL (140-450) Mean Platelet Volume 8.1 fL (6.9-10.8) Neutrophils (%) (Auto) 75.8 % (37.0-80.0) Lymphocytes (%) (Auto) 14.9 % (10.0-50.0) Monocytes (%) (Auto) 5.4 % (0.0-12.0) Eosinophils (%) (Auto) 3.7 % (0.0-7.0) Basophils (%) (Auto) 0.2 % (0.0-2.0) Neutrophils # (Auto) 9.3 10 ^3/uL (1.6-8.6) Lymphocytes # (Auto) 1.8 10 ^3/uL (0.4-5.4) Monocytes # (Auto) 0.7 10 ^3/uL (0-1.3) Eosinophils # (Auto) 0.4 10 ^3/uL (0-0.8) Basophils # (Auto) 0 10 ^3/uL (0-0.2) Nucleated Red Blood Cells 0.0 % Sodium Level 140 mmol/L (136-145) Potassium Level 3.9 mmol/L (3.5-5.1) Chloride Level 108 mmol/L (98-107) Carbon Dioxide Level 24 mmol/L (20-31) Anion Gap 8 (5-15) Blood Urea Nitrogen 12 mg/dL (9-23) Creatinine 0.79 mg/dL (0.700-1.30) Glomerular Filtration Rate Calc 98 mL/min (>90) BUN/Creatinine Ratio 15.2 (10.0-20.0) Serum Glucose 104 mg/dL (74-106) Calcium Level 7.8 mg/dL (8.7-10.4) Total Bilirubin 0.4 mg/dL (0.2-1.0) Aspartate Amino Transferase (AST) 17 U/L (13-40) Alanine Aminotransferase (ALT) 19 U/L (7-40) Alkaline Phosphatase 64 U/L (46-116) Total Protein 5.9 g/dL (5.7-8.2) Albumin 3.6 g/dL (3.2-4.8) Lipase 27 U/L (12-53) Urine Color Yellow (Yellow) Urine Clarity Turbid (Clear) Urine pH 5.0 (5.0-9.0) Urine Specific [place] 1.028 (1.001-1.035) Urine Protein 1+ (Negative) Urine Ketones Negative (Negative) Urine Blood Negative /uL (Negative) Urine Nitrite Negative (Negative) Urine Bilirubin Negative (Negative) Urine Urobilinogen Normal mg/dL (Negative) Urine Leukocyte Esterase Negative /uL (Negative) Urine RBC 6 /hpf (0 - 3) Urine Microscopic WBC 1 /HPF (0-3) Urine Squamous Epithelial Cells None seen /hpf (<5) Urine Bacteria None seen /hpf (None Seen) Urine Hyaline Casts Mod /lpf (0 - 2) Urine Mucus Few (None Seen) Urine Glucose Normal mg/dL (Normal) Urine Opiates Screen Pos (NEGATIVE) Urine Fentanyl Screen Neg (NEGATIVE) Urine Barbiturates Screen Neg (NEGATIVE) Urine Phencyclidine Screen Neg (NEGATIVE) Urine Amphetamines Screen Neg (NEGATIVE) Urine Benzodiazepines Screen Neg (NEGATIVE) Urine Cocaine Screen Neg (NEGATIVE) Urine Cannabinoids Screen Neg (NEGATIVE) Test 05/17/25 13:22 05/17/25 12:01 Differential Total Cells Counted 100.0 (100) Neutrophils % (Manual) 94 (37.0-80.0) Band Neutrophils % (Manual) 0 Lymphocytes % (Manual) 4 (10.0-50.0) Monocytes % (Manual) 2 (0-12) Eosinophils % (Manual) 0 (0-7) Basophils % (Manual) 0 (0.0-2.0) Metamyelocytes % (manual) 0 Myelocytes % (Manual) 0 Promyelocytes % (Manual) 0 Blast Cells % (Manual) 0 Reactive Lymphocytes 0 Platelet Estimate Adequate Direct Bilirubin 0.1 mg/dL (<0.3) Triglycerides Level 57 mg/dL (< 150) Cholesterol Level 124 mg/dL (< 200) LDL Cholesterol 76 mg/dL (< 100) HDL Cholesterol 38 mg/dL (40-59) Troponin I High Sensitivity 6 ng/L (</=54) Other Laboratory Tests 05/18/25 05:13 Brief Hx & Hospital Course: 65-year-old male came to the complaining of epigastric pain this morning. Epigastric pain radiating to the back. He states the is 10 10. Associated nausea unable vomit diarrhea. Patient has never had this kind of pain in the past. He does have a history of hypertension. He does take manjera injection for his prediabetes. Denies any past surgical history. Denies any other symptoms. In the ER patient noted to be in significant pain for which he received IV narcotics without significant relief. Patient's CT of the abdomen did not show acute significant pathology. However based on his presentation with the intractable pain it is decided to admit the patient to the hospital to have GI evaluation and further management. [place] some of his symptoms could be related to Mounjaro GLP one injection he has been taking. He is admitted and evaluated by hogshead inspector. [place] most of his symptoms possibly related to clinical pancreatitis due to Mounjaro injection has been taking to lose weight. Patient otherwise supportively treated while in the hospital. His white cell count is normal. He is tolerating his regular diet. He is not having any abdominal pain or discomfort. He is back to baseline normal status. Therefore it is felt he could be safely discharged home with recommendation to outpatient EGD in the next 3-6 weeks. Given patient took Mounjaro injection this week prior to coming to the hospital anesthesia felt he should stay off of Mounjaro for one week before doing EGD to prevent dysmotility syndrome. This is discussed with the patient. I have also discussed with him and his family member at bedside regarding his hospital diagnosis, treatment he received, discharge medications, discharge instructions and follow-up plan of care. He has verbalized understanding of these and agree with the care plan as outlined. Operations or Procedures PROCEDURE(s): ABPL - CT AB PEL WO CON-NO ORAL OR IV REASON: ABD PAIN ORDER NUMBER(s): [id number], ACCESSION NUMBER(s): [id number] CLINICAL INFORMATION: Abdominal pain. TECHNIQUE: Axial CT images of the abdomen and pelvis were obtained without IV contrast. Coronal and sagittal reformatted images were obtained, reviewed, and stored. Evaluation of the parenchymal organs is limited without IV contrast. Evaluation of the bowel and mesentery is limited without oral contrast. All CT scans at this medical facility are performed using dose modulation techniques as appropriate to a performed exam including the following: Automated exposure control was utilized; adjustment of the MA and/or KV according to patient size; and use of iterative reconstruction technique. CTDIvol = 20.17, 0.14 mGy DLP = 1171.95 mGy-cm COMPARISON: None. FINDINGS: Lung bases: Atelectasis in the lung bases. Liver: Grossly unremarkable in its noncontrast enhanced appearance. No abnormal density or focal lesion identified. Biliary: No calcified gallstones or biliary ductal dilatation. Spleen: Unremarkable. Pancreas: Grossly unremarkable in its noncontrast enhanced appearance. Adrenal glands: Unremarkable. No mass. Kidneys: No hydronephrosis. No renal or ureteral calculi. Aorta/Vascular: Moderate atherosclerotic calcification. No abdominal aortic aneurysm. Retroperitoneum: No mass or lymphadenopathy. Bowel/mesentery: No small bowel obstruction. No free air. Small amount of free fluid in the pelvis, may be inflammatory in nature. Appendix is not visualized. Scattered colonic diverticula without adjacent inflammatory changes to suggest diverticulitis. Pelvic organs: Grossly unremarkable. Bladder: Unremarkable. No mass. Abdominal wall: Small fat containing umbilical hernia. Bones: No acute fracture or suspicious intraosseous lesion. IMPRESSION: 1. Scattered colonic diverticula without adjacent inflammatory changes to suggest diverticulitis. 2. Small amount of free fluid in the pelvis, may be inflammatory in nature. 3. Additional nonacute findings as described above. Condition at Discharge: Stable Final Diagnosis/Problems List Epigastric Pitamia, GERD Discharge Disposition: Home Discharge Instruct/Medications Diet: Consistent carbohydrate, Cardiac 2g Na,low cholest Activity: No Restrictions, As Tolerated Follow Up/Referral: [facility] with Dr.Nikhil Dunn OR Dr. Inderjit Roman after 2 weeks for EGD and evaluation of epigastric pain Medications: as prescribed Scheduled Atorvastatin Calcium (Atorvastatin Calcium), 1 TAB PO DAILYPRN, (Reported) Levothyroxine Sodium (Levothyroxine Sodium), 1 TAB PO DAILYPRN, (Reported) Pantoprazole Sodium Sesquihydr (Pantoprazole Sodium Dr), 40 MG PO DAILY Discontinued Medications Lisinopril (Lisinopril), 1 TAB PO DAILYPRN, (Reported) Discontinued Reason: Prescription changed Discharge Statement: "Patient was advised to return to the ER or call 911 if any headaches, dizziness, shortness of breath, chest pain, abdominal pain, bleeding, fevers, or worsening of medical condition. Patient was counseled about treatment plan, medications, possible side effects, patientverbalized understanding. All questions were answered to the best of my ability. This discharge took greater then 30 minutes in planning, reviewing documentation, counseling the patient, and discussing with other team members." ASSESSMENT ASSESSMENT Assessment Epigastric Ibrahima, ANDRIY HELMS MD May 19, 2025 13:19
--- NOTE | 2025-05-19 13:52 | DVHPN2 ---
Subjective Patient admits to feeling better Decrease in abdominal pain Able to tolerate diet Changes from previous H/P or p: No Changes Objective Vitals Vital Signs Date Time Temp Pulse Resp B/P (MAP) Pulse Ox O2 Delivery O2 Flow Rate FiO2 05/19/25 12:56 98.2 68 18 135/81 (99) 95 98.2 05/19/25 08:00 Room Air* 0 21 Intake/Output Intake and Output 05/19/25 07:00 Intake Total 1250 ml Balance 1250 ml Intake Oral 1200 ml IV Total 50 ml # Voids 7 General Appearance: Alert, Oriented X3, Cooperative, No acute distress, mild distress, moderate distress, severe distress, Other Lungs: Clear to auscultation, Normal air movement, Other Cardiovascular: Regular rate, Normal S1, Normal S2, No murmurs, Gallops, Rubs, Other Abdomen: Normal bowel sounds, Soft, No tenderness, No hepatospenomegaly, No masses, Other Medications Current Medications Medications Dose Ordered Sig/Vicky Route Start Time Stop Time Status Last Admin Dose Admin Nitroglycerin 0.4 mg Q5MINP PRN SL 05/17/25 13:15 Morphine Sulfate 2 mg Q30M PRN IV 05/17/25 13:15 Ondansetron HCl 4 mg Q4HPRN PRN IV 05/17/25 13:15 05/18/25 14:53 4 MG Morphine Sulfate 3 mg Q3HPRN PRN IV 05/17/25 13:15 Morphine Sulfate 2 mg Q4HPRN PRN IV 05/17/25 13:15 05/18/25 14:54 2 MG Acetaminophen/ Hydrocodone Bitart 1 tab Q4HPRN PRN PO 05/17/25 13:15 05/18/25 21:46 1 TAB Pantoprazole Sodium 40 mg BID IV 05/17/25 22:00 05/19/25 09:17 40 MG Diagnostic Test (Pha) 1 strip ACHS 05/17/25 17:00 05/19/25 11:53 1 STRIP Insulin Human Regular HS SC 05/17/25 22:00 Insulin Human Regular AC SC 05/17/25 17:00 Dextrose 50 ml UD PRN IV 05/17/25 13:15 Atorvastatin Calcium 20 mg HS PO 05/17/25 22:00 05/18/25 21:43 20 MG Levothyroxine Sodium 25 mcg QAM@0600 PO 05/18/25 06:00 05/19/25 05:42 25 MCG Ceftriaxone Sodium 50 ml @ 100 mls/hr DAILY@09 IV 05/18/25 09:00 05/19/25 09:17 100 MLS/HR Hyoscyamine 0.25 mg Q6HWA PRN PO 05/18/25 15:45 Sucralfate 1 gm TID@0600,1130,2200 PO 05/18/25 22:00 05/19/25 11:58 1 GM Losartan Potassium 100 mg BID PO 05/18/25 22:00 05/19/25 09:18 100 MG Carvedilol 12.5 mg Q12HR PO 05/18/25 22:00 05/19/25 09:19 12.5 MG Hydralazine HCl 10 mg Q6HP PRN IV 05/18/25 21:15 Laboratory Results Laboratory Tests 05/18/25 05:13 Coagulation Test 05/18/25 13:56 Prothrombin Time 11.4 sec (9.3-11.8) Prothrombin Time INR 1.08 (0.9-1.15) Urinalysis Test 05/17/25 18:58 Urine Color Yellow (Yellow) Urine Clarity Turbid (Clear) H Urine pH 5.0 (5.0-9.0) Urine Specific [place] 1.028 (1.001-1.035) Urine Protein 1+ (Negative) H Urine Ketones Negative (Negative) Urine Blood Negative /uL (Negative) Urine Nitrite Negative (Negative) Urine Bilirubin Negative (Negative) Urine Urobilinogen Normal mg/dL (Negative) Urine Leukocyte Esterase Negative /uL (Negative) Urine RBC 6 /hpf (0 - 3) Urine Microscopic WBC 1 /HPF (0-3) Urine Squamous Epithelial Cells None seen /hpf (<5) Urine Bacteria None seen /hpf (None Seen) Urine Hyaline Casts Mod /lpf (0 - 2) Urine Mucus Few (None Seen) Urine Glucose Normal mg/dL (Normal) Microbiology Microbiology Date/Time Source Procedure Growth Status 05/17/25 15:30 Blood Blood Culture - Preliminary NO GROWTH AFTER 24 HOURS OF INCUBATION. Resulted Assessment/Plan Assessment/Plan Abdominal pain History of diverticulitis History of GERD DM using Mounernestoro Plan Discussed with Dr. Roman Since EGD was not able to be completed yesterday due to patient's use of Mounjaro recently, we will have patient follow-up in GI clinic in 2-3 weeks for possible outpatient schedule of EGD Recommend patient to be discharged with Protonix and Carafate Plan discussed with: Patient, Other (Family at bedside) Date of Service: May 19, 2025 Billing Provider: JOSELYN BARKSDALE Common Visit Codes: [id number] INP/OBS CARE(HIGH) JOSELYN BARKSDALE May 19, 2025 13:52
[2025-05-19] MEDS ORDERED: SUCR1SUS5 PO (14:08)
[2025-05-19 14:37] VITALS: BP 138/87; PULSE 71; TEMP 36.8
== END 2025-05-19 16:00 | disposition home or self-care (01) | DRG 372 ==
LOC: ER 08:05 → OVERFLOW 13:15 → CENTRAL 16:40
PROVIDERS: ADMIT Hospitalist; ATTEND Hospitalist
DX: A04.9 Bacterial intestinal infection, unspecified (principal); R65.10 Systemic inflammatory response syndrome (SIRS) of non-infectious origin without acute organ dysfunction; E11.9 Type 2 diabetes mellitus without complications; I10 Essential (primary) hypertension; K21.9 Gastro-esophageal reflux disease without esophagitis; Z82.49 Family history of ischemic heart disease and other diseases of the circulatory system
CPT/HCPCS: 36415; 71045; 74176; 80048; 80053; 80061; 80076; 80307; 81001; 82962; 83690; 84484; 85007; 85025; 85027; 85610; 87040; 93005; 96361; 96374; G0378; J2405; J2470; J3490